=== PATIENT | male | born 1990 | race Caucasian/White ===

== ENCOUNTER 2019-02-26 20:39 | Emergency (ER) | payer BC ==
[~2019-02-26] VITALS: Ht 167.6 cm; Wt 102.1 kg
[2019-02-26 20:44] VITALS: BP 145/78; PULSE 71; RESP 19; Ht 167.6 cm; Wt 102.1 kg
--- NOTE | 2019-02-26 23:30 | ERD ---
ER Documentation Chief Complaint Chief Complaint RIGHT ARM INJ [id number] AGO; [employer] HPI 29-year-old male with no reported past medical or surgical history who presents with complaint of right arm pain. 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 He relates pain especially worse with movement and flexion of her right arm. He otherwise is without complaint. Patient seen and examined with attending. Patient became upset for unclear reason and decided to leave the emergency room without completing evaluation. ROS All systems reviewed and are negative except as per history of present illness. PMhx/Soc History of Surgery: Yes (RIGHT LEG,LEFT KNEE,ABDOMEN,LEFT ARM) Anesthesia Reaction: No Hx Neurological Disorder: No Hx Respiratory Disorders: No Hx Cardiac Disorders: No Hx Psychiatric Problems: No Hx Miscellaneous Medical Probl: No Hx Alcohol Use: No Hx Substance Use: No Hx Tobacco Use: No Smoking Status: Never smoker FmHx Family History: No diabetes, No coronary disease, No other Physical Exam Vitals Vital Signs Date Temp Pulse Resp B/P (MAP) Pulse Ox O2 O2 Flow FiO2 Time Delivery Rate 02/26/19 98.2 71 19 145/78 97 20:44 (100) Physical Exam Const: No acute distress Head: Atraumatic Eyes: Normal Conjunctiva ENT: Normal External Ears, Nose and Mouth. Neck: Full range of motion. No meningismus. Resp: Clear to auscultation bilaterally Cardio: Regular rate and rhythm, no murmurs Abd: Soft, non tender, non distended. Normal bowel sounds Skin: No petechiae or rashes Back: No midline or flank tenderness Ext: No cyanosis, or edema, right arm with pain on flexion and palpation of biceps muscle Neur: Awake and alert Psych: Normal Mood and Affect Procedures/MDM 29-year-old male who presents with right arm pain after injury. Patient seen and evaluated with attending. Concern is for biceps tendon injury or rupture. Concern explained to patient. This patient in detail he may require additional imaging not offered in the emergency room such as MRI for diagnosis. Patient became upset during evaluation and for unclear reason made the decision to leave this Emergency Department and any ongoing care against the advice of the emergency physician. Patient left and provider not given options explained the risks. The patient has the capacity to make this decision and accepts the responsibility of leaving at this time. The patients only member who accompanied him during examination was advised that the patient may return at any time for further evaluation or treatment. The patient's condition at time of discharge is stable. Departure Diagnosis: Primary Impression: Pain of right arm Condition: Stable STEVE EVANS PA-C Feb 26, 2019 23:30
== END 2019-02-26 23:24 | disposition left against medical advice (07) ==
LOC: FTE 20:39
DX: M79.601 Pain in right arm (principal)
CPT/HCPCS: 99282